=== PATIENT | male | born 1960 | race Asian ===

== ENCOUNTER 2017-08-15 10:35 | Inpatient (IN) | payer OTHER ==
[~2017-08-15] VITALS: Ht 170.2 cm; Wt 69.9 kg
[~2017-08-15 10:35] MED LIST: HEPARIN SODIUM 1,000 UNIT/1ML VIAL IV ONE; NICARDIPINE 100MCG/ML 10ML VIAL (CATH LAB) IV ONE; NITROGLYCERIN 50MCG/ML 10ML VIAL (CATH LAB) IV ONE
[2017-08-15] MEDS ORDERED: CLOP75TA16 PO (11:33)
[2017-08-15] MEDS ORDERED: LEVO75TA7 PO (11:33)
[2017-08-15] MEDS ORDERED: ASPI-1159 PO (11:33)
[2017-08-15] MEDS ORDERED: FENTANYL CITRATE/PF 50MCG/ML 2ML VIAL ONE (13:38)
[2017-08-15] MEDS ORDERED: IODIXANOL 320MG/ML 100 ML BOTTLE IV ONE (13:38)
[2017-08-15] MEDS ORDERED: MIDAZOLAM HCL 2 MG/2 ML VIAL ONE (13:38)
[2017-08-15] MEDS ORDERED: LIDOCAINE HCL 1% 20ML VIAL (Pyxis) INJ ONE (13:38)
[2017-08-15] MEDS ORDERED: DIPHENHYDRAMINE 50MG/ML VIAL ONE (13:47)
[2017-08-15] MEDS ORDERED: HYDROCORTISONE SOD SUCCINATE 250 MG/2 ML VIAL ONE (13:47)
[2017-08-15] MEDS ORDERED: FAMOTIDINE 20MG/2ML VIAL IV ONE (13:48)
[2017-08-15] MEDS ORDERED: IOVERSOL 240MG/ML 100ML BOTTLE IV ONE (14:32)
[2017-08-15] MEDS ORDERED: HEPARIN SODIUM 1,000 UNIT/1ML VIAL IV ONE (14:32)
[2017-08-15] MEDS ORDERED: IODIXANOL 320MG/ML 200ML BOTTLE ONE (15:05)
[2017-08-15] MEDS ORDERED: ASPIRIN 325MG TABLET ONE (15:13)
[2017-08-15] MEDS ORDERED: CLOPIDOGREL 75MG TABLET ONE ×2 (15:13→15:16)
[2017-08-15] MEDS ORDERED: ACETAMINOPHEN 325MG TABLET PO PRN (15:30)
[2017-08-15] MEDS ORDERED: SODIUM CHLORIDE 0.45% 1,000 ML IV SCH (15:30)
[2017-08-15] MEDS ORDERED: ATROPINE SULFATE 1MG/10ML SYR IV PRN (15:30)
[2017-08-15 15:43] VITALS: BP 113/77
[2017-08-15 15:52] VITALS: BP 122/72
[2017-08-15 16:00] VITALS: BP 127/71
[2017-08-15 20:00] VITALS: BP 114/62
[2017-08-15 22:00] VITALS: BP 117/68
[2017-08-16] VITALS (7 sets, daily range): BP systolic 90–144; BP diastolic 49–77
[2017-08-16 07:10] LABS: BASOPHILS % 0.5 % (0.0-2.0); EOSINOPHILS % 0.7 % (0.0-5.0); HEMATOCRIT. 40.8 % (42.0-52.0); HEMOGLOBIN. 13.5 g/dL (14.0-18.0); LYMPHOCYTES % 24.5 % (20.0-50.0); MEAN CORPUSCULAR HEMOGLOBIN 25.4 pg (28.0-32.0); MEAN CORPUSCULAR VOLUME 77.1 fL (80.0-94.0); MEAN PLATELET VOLUME 9.2 fl (7.4-10.4); MONOCYTES % 9.3 % (2.0-8.0); PLATELET 228 x1000/uL (130-400); RED BLOOD CELL COUNT 5.29 mill/uL (4.7-6.1); RED CELL DISTRIBUTION WIDTH 14.4 % (11.6-14.6)
[2017-08-16 07:32] LABS: CHLORIDE 106 mEq/L (98-107)
[2017-08-16] MEDS ORDERED: CLOPIDOGREL 75MG TABLET PO SCH (09:00)
[2017-08-16] MEDS ORDERED: ASPIRIN 325MG TABLET PO SCH (09:00)
== END 2017-08-16 10:35 | disposition home or self-care (01) | DRG 247 ==
LOC: CCL 10:35 → 3WST 10:36
PROVIDERS: ADMIT Specialist; ATTEND Specialist
PROC: 4A023N7 Measurement of Cardiac Sampling and Pressure, Left Heart, Percutaneous Approach (ICD-10-PCS; principal; 2017-08-15)
PROC: 027135Z Dilation of Coronary Artery, Two Arteries with Two Drug-eluting Intraluminal Devices, Percutaneous Approach (ICD-10-PCS; 2017-08-15)
PROC: B2111ZZ Fluoroscopy of Multiple Coronary Arteries using Low Osmolar Contrast (ICD-10-PCS; 2017-08-15)
DX: I25.10 Atherosclerotic heart disease of native coronary artery without angina pectoris (principal); I11.9 Hypertensive heart disease without heart failure; E03.9 Hypothyroidism, unspecified; E11.9 Type 2 diabetes mellitus without complications; E78.5 Hyperlipidemia, unspecified; K21.9 Gastro-esophageal reflux disease without esophagitis
CPT/HCPCS: 36415; 80048; 85025; 85347; 92928; 93005; 93454; C1725; C1769; C1887; C1893; J1200; J1644; J1720; J2250; J3010; J3490; Q9967